=== PATIENT | female | born 1985 | race Caucasian/White ===

== ENCOUNTER 2022-02-18 11:37 | Emergency (ER) | payer BC, SELFPAY ==
[2022-02-18 11:38] VITALS: BP 157/100; PULSE 94; RESP 14; TEMP 36.4; O2SAT 96; BMI 47.5
[2022-02-18 12:13] VITALS: BP 130/77
[2022-02-18 12:16] VITALS: BMI 49.1
[2022-02-18 12:21] LABS: Bedside Glucose 161 mg/dL (74-106)
[2022-02-18 12:56] LABS: Bacteria 0 SEEN /hpf (None Seen); Mucous, Urine 0 SEEN /hpf (<or=2+); Red Blood Cells-Urine 0 SEEN /hpf (0-5); Squamous Epithelial Cells - UA 0 SEEN /hpf (5-10)
[2022-02-18 12:58] LABS: Color, Urine Yellow (Yellow); Glucose, Dipstick Normal (Normal); Ketone-Dipstick Negative (Negative); Leukocyte Esterase-Dipstick 25 /ul (Negative); Nitrite-Dipstick Negative (Negative); Occult Blood-Urine Negative /ul (Negative); Protein-Dipstick Negative (Negative); Urine Bilirubin Dipstick Negative (Negative); Urine Clarity Clear (Clear); Urine Urobilinogen Normal (Normal)
[2022-02-18 13:03] LABS: Calcium Oxalate Crystals Ur 1+ /hpf (<or=2+); Internal QC Validated? YES +Cl - CLEAR BKGD; Pregnancy, Urine Negative Negative; White Blood Cells 0-5 SEEN /hpf (0-5)
--- NOTE | 2022-02-18 15:26 | EX.ED.DYSGE1 ---
HPI History of Present Illness Chief Complaint: Neuro S/Sx Informant: patient Narrative Narrative: Patient is a 36-year-old female with history of prediabetes and depression presenting for increased fatigue and feeling that her speech is off. Patient was started on risperidone 1 mg twice a day 3 days ago. This is what her symptoms started. She notes that she feels that she is in a fog and very tired. She states she feels confused and dizzy. She feels that she is drooling sometimes and that she cannot open her mouth as much as she should be able to open her mouth wider. Also notes a couple days ago she was having urinary frequency and dysuria. She took 1 dose of Keflex and her symptoms seem to have improved. Denies any abnormal vaginal discharge or bleeding. No other complaints at this time. [facility], [facility] Medical History Anxiety Depression Allergy/AdvReac Type Severity Reaction Status Date / Time No Known Allergies Allergy Verified 02/18/22 11:41 Social History Smoking Status: Current every day smoker tobacco type: cigarettes ROS ROS ED Constitutional Constitutional ED: Reports other Details: lightheaded ; Denies chills or fever(s) Eyes Eyes: Denies blurry vision ENT ENT ED: Denies rhinorrhea or sore throat Cardiovascular Cardiovascular: Denies chest pain Respiratory/Chest Respiratory/Chest: Denies cough Gastrointestinal Gastrointestinal: Denies abdominal pain, nausea or vomiting Genitourinary Genitourinary ED: Reports dysuria and urinary frequency; Denies hematuria Musculoskeletal Musculoskeletal: Denies arthralgias Integumentary Denies rash Neurologic Neurologic: Reports weakness; Denies headache(s) or paresthesias Psychiatric Psychiatric: Denies anxiety EXAM Physical Exam Const Vital Signs: 02/18/22 11:38 02/18/22 12:13 Temperature 97.6 F L Temperature Source Temporal Pulse Rate 94 Respiratory Rate 14 Blood Pressure 157/100 H 130/77 H Blood Pressure Mean 119 94 Pulse Ox 96 Oxygen Delivery Method Room Air Positive well nourished, well developed and obese General Appearance ED: well developed and NAD Nutritional Appearance: obese HEENT Reports moist mucous membranes Eyes PERRL and EOMs intact bilaterally Neck supple Neck Narrative: No meningeal signs Chest Wall inspection of chest normal Resp normal respiratory effort and clear to auscultation bilaterally Cardio regular rate, regular rhythm and no murmurs GI normal to inspection, nondistended, normoactive bowel sounds Back/Spine no CVA tenderness Neuro oriented x3, CN's II-XII intact bilaterally and no sensory deficits noted Neuro Narrative: No clonus. No cogwheel rigidity. Motor Exam: strength 5/5 throughout; Negative for general weakness Psych mental status grossly normal Skin no rashes or lesions noted MDM MDM MDM Narrative Medical decision making narrative: Patient evaluated for sensation of increased fatigue, dizziness and not feeling right after being started on risperidone. Patient has a normal neurologic exam. She is alert in the emergency room. Her stick blood sugar is 161. She is also had some urinary symptoms [place] urinalysis obtained. It is not consistent with infection. I did send it off her cultures as could be mast as she took 1 dose of antibiotics yesterday. Patient does drink alcohol and is counseled that the alcohol may be interacting with the antipsychotic. I did discuss the case with her psychiatrist, Dr. Hernandez, who is agreeable with having the dose to half a milligram twice daily for 6 days to see if she tolerates it better. He will follow-up outpatient. Patient does not have findings concerning for serotonin syndrome or neuroleptic malignant syndrome and I do not think further observation or work-up is indicated at this time. Patient agreeable this plan of care. Is also going to follow-up with primary care doctor. Lab Data Attestation: I reviewed the patient's lab results. Labs: Laboratory Results - last 24 hr 02/18/22 02/18/22 12:12 12:50 Urine Color Yellow Urine Clarity Clear Urine pH 6.0 Ur Specific [place] 1.020 Urine Protein Negative Urine Glucose (UA) Normal Urine Ketones Negative Urine Occult Blood Negative Urine Nitrite Negative Urine Bilirubin Negative Urine Urobilinogen Normal Ur Leukocyte Esterase 25 H Urine RBC 0 SEEN Urine WBC 0-5 SEEN Ur Squamous Epith Cells 0 SEEN Calcium Oxalate Crystal 1+ Urine Bacteria 0 SEEN Urine Mucus 0 SEEN Urine Test Negative POC Glucose 161 H Discharge Plan Triage Chief Complaint: Neuro S/Sx ED Provider: Johana Guy Dx/Rx/DC Orders Clinical Impression: Medication side effects, Fatigue Instructions: ED Drug Reaction, Other Activity Restrictions/Additional Instructions: Take half a pill (0.5 mg) twice a day for 6 days to see if he tolerates that risperidone better. Follow-up with her psychiatrist as well as her primary care doctor. Your blood sugar was minimally elevated 161. Urine was not consistent with infection but was sent off for culture. Disposition Disposition: Home, Self Care
[2022-02-18 15:55] VITALS: BP 138/69; PULSE 88; RESP 16; O2SAT 97
== END 2022-02-18 15:56 | disposition home or self-care (01) ==
PROVIDERS: Emergency Provider Emergency Medicine; Visit Provider Emergency Medicine
DX: R53.83 Other fatigue (principal); T50.995A Adverse effect of other drugs, medicaments and biological substances, initial encounter; R35.0 Frequency of micturition; F17.210 Nicotine dependence, cigarettes, uncomplicated
CPT/HCPCS: 81001; 81025; 82962; 87086; 87088; 99282